=== PATIENT | female | born 1990 | race Caucasian/White ===

== ENCOUNTER 2016-09-23 20:22 | Emergency (ER) | payer BC ==
[~2016-09-23] VITALS: Ht 177.8 cm; Wt 105.7 kg
[2016-09-23 20:28] VITALS: TEMP 36.8; Ht 177.8 cm; Wt 105.7 kg
[2016-09-23] MEDS ORDERED: DIPHTHERIA/TETANUS/PERTUSSIS 0.5 ML SYR/VIAL IM. ONE (21:00)
--- NOTE | 2016-09-23 21:12 | EMERGENCY ROOM VISIT NOTE ---
History First contact with patient: 20:44 Chief Complaint: TETANUS SHOT NEEDED Stated Complaint: TETANUS SHOT NEEDED, CUT ON LEG History of Present Illness The patient is a 25 year old female who presents to the Emergency Room via private vehicle with complaints of "tetanus shot needed, cut on leg". The patient states that earlier today she was moving into a new place, when she scraped her left leg on a chapo metal ledge on the floor. She is concerned because her tetanus is not up-to-date. She is here requesting an update of her tetanus. Review of Systems A complete 6-point Review of Systems was discussed with the patient, with pertinent positives and negatives listed in the History of Present Illness. All remaining Review of Systems questions can be considered negative unless otherwise specified. Past Medical/Surgical History No pertinent past medical history. Family History Diabetes, heart disease, high blood pressure. Social History Smoking Status: Former Smoker Social History: Patient admits to alcohol use, but denies tobacco use. Current/Historical Medications No Active Prescriptions or Reported Meds Allergies Coded Allergies: No Known Allergies (Unverified , 09/23/16) Physical Exam Vital Signs Date Time Temp Pulse Resp B/P (MAP) Pulse Ox O2 Delivery O2 Flow Rate FiO2 09/23/16 21:27 60 18 138/76 100 09/23/16 20:28 36.8 84 18 167/96 99 Room Air Physical Exam VITAL SIGNS - Vital signs and nursing notes were reviewed. GENERAL 25-year-old female appearing her stated age who is in no acute distress. Communicates well with provider and answers questions appropriately. SKIN - Without rashes. There is a small abrasion noted to the posterior aspect of the left leg. No active bleeding noted. Medical Decision & Procedures Medications Administered Medications (Trade) Dose Ordered Sig/Francisco Javier Route Start Time Stop Time Status Last Admin Dose Admin Diphtheria/ Pertussis/Tetanus Vacc (Adacel Inj) 0.5 ml ONCE ONCE IM. 09/23/16 21:00 09/23/16 21:01 DC 09/23/16 20:54 0.5 ML Medical Decision Patient was seen and evaluated as above. She presents to us today with requested a tetanus shot. She also notes she has not cleansed the wound. After verifying consent, I cleaned the wound, dressed with bacitracin and a bandage. Her tetanus was updated. She was educated upon worrisome symptoms which to return, had questions prior to discharge, and was discharged home in good condition. In evaluation treatment this patient following differential diagnoses were entertained: Need for tetanus update, abrasion, among others. Impression Primary Impression: Need for tetanus booster Additional Impression: Leg abrasion, non-infected Departure Information Dispostion Home / Self-Care Condition GOOD Prescriptions No Active Prescriptions or Reported Meds Referrals No Doctor, Assigned (PCP) Patient Instructions My [facility] Additional Instructions You were seen in the emergency Department for a tetanus booster. Please watch for signs of infection to include redness, swelling, drainage from the leg. These were to develop please return immediately. Thank you for your time. Problem Qualifiers
[2016-09-23 21:27] VITALS: BP 138/76; PULSE 60; O2SAT 100
== END 2016-09-23 21:23 | disposition home or self-care (01) ==
LOC: C.EDB 20:25 → C.EDD 21:23
DX: S80.812A Abrasion, left lower leg, initial encounter (principal); W45.8XXA Other foreign body or object entering through skin, initial encounter; Y92.89 Other specified places as the place of occurrence of the external cause; Z23 Encounter for immunization; Z87.891 Personal history of nicotine dependence; Z83.3 Family history of diabetes mellitus; Z82.49 Family history of ischemic heart disease and other diseases of the circulatory system